=== PATIENT | female | born 1995 | race Caucasian/White ===

== ENCOUNTER 2017-10-18 17:14 | Emergency (ER) | payer BC, MEDICAID, SELFPAY ==
[2017-10-18 17:16] VITALS: BP 131/85; PULSE 91; RESP 17; TEMP 36.7; O2SAT 100; BMI 24.1
--- NOTE | 2017-10-18 17:38 | RAD_ITS ---
STUDY: X-RAY - RIGHT WRIST REASON FOR EXAM: Female, 22 years old. Right-sided wrist pain after fall. TECHNIQUE: AP and lateral view(s) of the wrist were obtained. COMPARISON: Radiographs of the left wrist dated October 18, 2017. FINDINGS: There is demineralization of the radius and ulna. Normal radiocarpal articulation. Normal distal radioulnar articulation. There is demineralization of the carpal bones. Normal carpal articulations. Normal carpometacarpal articulation of the thumb. Normal second through fifth carpometacarpal articulations. There is demineralization of the metacarpal bones. There is mild soft tissue swelling. There is no demonstrated acute fracture. RAD/Wrist 2 Views IMPRESSION: Soft tissue swelling without evidence for acute fracture. If there is still clinical concern for acute fracture, follow-up radiographs in 7-10 days maybe helpful in evaluating a healing radiographically occult fracture. Electronically Signed: Pilar Shepherd MD at 19:20 EST , Service support ,
--- NOTE | 2017-10-18 17:40 | RAD_ITS ---
STUDY: X-RAY - RIGHT ELBOW REASON FOR EXAM: Female, 22 years old. Right-sided elbow pain after fall. TECHNIQUE: 3 view(s) of the elbow. COMPARISON: Prior comparable comparison studies are not available for review at this time. FINDINGS: There is an acute fracture of the radial neck. The distal humerus and proximal ulna have a grossly normal appearance. Normal radiocapitellar and ulnotrochlear articulations. There is soft tissue swelling. There are no anterior or posterior fat-pad signs. RAD/Elbow min 3 Views IMPRESSION: Acute fracture of the radial neck. Electronically Signed: Pilar Shepherd MD at 19:05 EST , Service support ,
--- NOTE | 2017-10-18 17:46 | RAD_ITS ---
STUDY: X-RAY - SACRUM/COCCYX REASON FOR EXAM: Female, 22 years old. Pelvic pain after fall. TECHNIQUE: 3 view(s) of the sacrum and coccyx were obtained. COMPARISON: Prior comparison studies are not available for review at this time. FINDINGS: Normal bilateral sacroiliac joints. Normal visualized sacral ala and fused sacral bodies. Normal sacrococcygeal junction with a normal angulation. There is deformity of the distal coccygeal segment suggesting a possible undisplaced fracture. The presacral soft tissue structures are unremarkable. RAD/Sacrum-Coccyx min 2 Views IMPRESSION: Questionable fracture of the distal coccyx. The acuity of this finding is uncertain. If there is still clinical concern for acute fracture, follow-up bone scan maybe helpful in evaluating a healing radiographically occult fracture. Electronically Signed: Pilar Shepherd MD at 19:17 EST , Service support ,
--- NOTE | 2017-10-18 17:58 | RAD_ITS ---
STUDY: X-RAY - LEFT ELBOW REASON FOR EXAM: Female, 22 years old. Left-sided elbow pain after fall. TECHNIQUE: 3 view(s) of the elbow. COMPARISON: None. FINDINGS: Normal visualized humerus, radius and ulna. Normal radiocapitellar and ulnotrochlear articulations. There appear to be curvilinear opacities possibly within the soft tissues of the proximal forearm. These may represent radiopaque foreign bodies. Clinical correlation is suggested. There is no demonstrated fracture. RAD/Elbow min 3 Views IMPRESSION: 1. No radiographic evidence of acute fracture. 2. Two radiopaque foreign bodies within the soft tissues of the proximal forearm. Electronically Signed: Pilar Shepherd MD at 19:14 EST , Service support ,
--- NOTE | 2017-10-18 18:04 | RAD_ITS ---
STUDY: X-RAY - LEFT WRIST REASON FOR EXAM: Female, 22 years old. Left-sided wrist pain after fall. TECHNIQUE: AP and lateral view(s) of the wrist were obtained. COMPARISON: Radiographs of the right wrist dated October 18, 2017. FINDINGS: There is demineralization of the radius and ulna. Normal radiocarpal articulation. Normal distal radioulnar articulation. Normal carpal bones. Normal carpal articulations. Normal carpometacarpal articulation of the thumb. Normal second through fifth carpometacarpal articulations. There is demineralization of the metacarpal bones. There is mild soft tissue swelling There is no demonstrated acute fracture. RAD/Wrist 2 Views IMPRESSION: Mild soft tissue swelling without evidence for acute fracture. If there is still clinical concern for acute fracture, follow-up radiographs in 7-10 days maybe helpful in evaluating a healing radiographically occult fracture. Electronically Signed: Pilar Shepherd MD at 19:18 EST , Service support ,
--- NOTE | 2017-10-18 18:16 | ED.DCSUM_ITS ---
- ER Visit Summary Date of Service: 10/18/17 Chief Complaint: Bilateral arm, tailbone pain History of Present Illness: The patient is a 22 F who was rollerskating when she fell directly backwards. She landed on her buttocks. She fell on both of her outstretched arms. She has pain in both of her arms. She felt tingling in her forearms. She has pain in the coccygeal area. She took nothing for it. Physical Examination: Vital signs are reviewed. Back exam reveals some tenderness on the coccyx. There is no lumbar or thoracic tenderness. Bilateral arms reveal tenderness in the elbows and proximal forearms bilaterally. There is some mild wrist tenderness with range of motion. No shoulder pain. Test Results: X-ray of the right elbow reveals a radial head fracture. Sacral x -ray reveals a questionable acute fracture but the chronicity is undetermined. The rest of her x-rays are normal Emergency Department Course and Treatment: Patient was treated with ibuprofen Treatment Plan: I placed a right long-arm posterior splint. Patient will be treated with naproxen at home. I will give for orthopedic follow-up. At this point it will feel there is anything that needs to be done with the coccygeal fracture. Disposition: Discharge Impression: Right radial head fracture Coccygeal fracture This note was generated with [employer] dictation software. It may contain incorrect words, spelling, and punctuation that were not noted in review of the chart prior to signing ED Disposition - Plan for ED Patient: Chief Complaint: Fall Referrals: Dale Rubin MD [Primary Care Provider] -
[2017-10-18] MEDS: Ibuprofen 600 MG Tablet PO (18:34)
--- NOTE | 2017-10-18 19:40 | ED.DEP ---
ED Disposition - Plan for ED Patient: Disposition: Home or Assisted Living Chief Complaint: Fall Instructions: ED Mechanical Fall Prescriptions: Naproxen [Naprosyn] 500 mg PO BID PRN #20 tab Referrals: Dale Rubin MD [Primary Care Provider] - Familia Pérez MD [STAFF PHYSICIAN] -
[2017-10-18 19:55] VITALS: BP 119/78; PULSE 85; RESP 16; O2SAT 98
--- NOTE | 2017-10-18 19:56 | ED.RN ---
THIS NURSE REVIEWED D/C INSTRUCTIONS WITH PT. PT VERBALIZED UNDERSTANDING OF INSTRUCTIONS. PT DENIES FURTHER NEEDS OR QUESTIONS AT THIS TIME. PT AMBULATES FROM ROOM ON OWN WITHOUT ASSISTANCE FROM STAFF
== END 2017-10-18 19:57 | disposition home or self-care (01) ==
PROVIDERS: Emergency Provider Emergency Medicine; Family Provider Family Medicine; PCP Family Medicine
DX: S52.121A Displaced fracture of head of right radius, initial encounter for closed fracture (principal); S32.2XXA Fracture of coccyx, initial encounter for closed fracture; W18.39XA Other fall on same level, initial encounter; Y93.51 Activity, roller skating (inline) and skateboarding; Y92.9 Unspecified place or not applicable; Y99.9 Unspecified external cause status; J45.909 Unspecified asthma, uncomplicated; Z72.0 Tobacco use
CPT/HCPCS: 29105; 72220; 73080; 73100; 99282